=== PATIENT | female | born 1980 | race Caucasian/White ===

== ENCOUNTER 2018-03-14 03:48 | Observation (INO) | payer OTHER ==
[2018-03-14] MEDS ORDERED: BISACODYL (EC) 5 MG TAB PO (05:00)
[2018-03-14] MEDS ORDERED: ACETAMINOPHEN 325 MG TAB PO (05:00)
[2018-03-14] MEDS ORDERED: DOCUSATE SODIUM 100 MG CAP PO (05:00)
[2018-03-14] MEDS ORDERED: NACL 0.9% 3 ML SYG IV (05:00)
[2018-03-14] MEDS ORDERED: ONDANSETRON 4 MG INJ IV (05:00)
[2018-03-14] MEDS: SOD CHLORIDE 0.9% 1,000 ML IV ×3 (05:36→21:03)
[2018-03-14] MEDS: HYDROmorphONE 0.5 MG/0.5 ML SYG IV ×4 (05:37→20:58)
[2018-03-14 05:43] LABS: ADD MAN DIFF? NO
[2018-03-14 05:50] LABS: BASOPHIL # 0.1 10^3/ul (0.0-0.1); BASOPHILS % 0.6 % (0.0-2.0); EOSINOPHILS # 0.1 10^3/ul (0.0-0.5); EOSINOPHILS % 1.2 % (0.0-7.0); HEMATOCRIT 34.6 % (37.0-47.0); HEMOGLOBIN 11.1 g/dl (12.0-16.0); LYMPHOCYTES # 2.6 10^3/ul (0.8-2.9); LYMPHOCYTES % 24.7 % (15.0-51.0); MEAN CORPUSCULAR HEMOGLOBIN 30.6 pg (29.0-33.0); MEAN CORPUSCULAR HGB CONC 32.1 g/dl (32.0-37.0); MEAN CORPUSCULAR VOLUME 95.3 fl (82.0-101.0); MEAN PLATELET VOLUME 10.1 fl (7.4-10.4); MONOCYTE # 0.6 10^3/ul (0.3-0.9); MONOCYTES % 5.9 % (0.0-11.0); PLATELET COUNT 253 10^3/UL (140-415); RED BLOOD COUNT 3.63 10^6/ul (4.20-5.40); RED CELL DISTRIBUTION WIDTH 13.4 % (11.5-14.5)
[2018-03-14 05:50] LABS: WHITE BLOOD COUNT 10.4 10^3/ul (4.8-10.8)
[2018-03-14 06:18] LABS: ALANINE AMINOTRANSFERASE 37 IU/L (13-69); ALBUMIN 3.7 g/dl (3.3-4.9); ALBUMIN/GLOBULIN RATIO 1.12; ALKALINE PHOSPHATASE 56 IU/L (42-121); ANION GAP 10 (8-16); ASPARTATE AMINO TRANSFERASE 25 IU/L (15-46); BILIRUBIN,INDIRECT 0.3 mg/dl (0-1.1); BILIRUBIN,TOTAL 0.3 mg/dl (0.2-1.3); BLOOD UREA NITROGEN 9 mg/dl (7-20); CALCIUM 8.5 mg/dl (8.4-10.2); CARBON DIOXIDE 27 mmol/L (21-31); CHLORIDE 105 mmol/L (97-110); CREATININE 0.49 mg/dl (0.44-1.00); GLUCOSE 97 mg/dl (70-220); POTASSIUM 4.4 mmol/L (3.5-5.1); SODIUM 138 mmol/L (135-144)
[2018-03-14 06:18] LABS: MAGNESIUM 2.1 mg/dl (1.7-2.5)
[2018-03-14] MEDS ORDERED: LORAZEPAM 0.5 MG TAB PO (07:00)
[2018-03-14] MEDS ORDERED: LORAZEPAM 2 MG INJ IV (12:00)
[2018-03-14 12:01] LABS: IRON 73 ug/dl (35-150)
[2018-03-14 12:10] LABS: % IRON SATURATION 21 % SAT (22-52); TOTAL IRON BINDING CAPACITY 342 ug/dl (241-421)
[2018-03-14 12:17] LABS: FREE T4 (FREE THYROXINE) 0.24 ng/dl (0.79-2.35)
[2018-03-14 13:43] LABS: FERRITIN 34.9 ng/ml (6.2-137.0)
[2018-03-15] MEDS: HYDROmorphONE 0.5 MG/0.5 ML SYG IV ×3 (01:22→12:47)
[2018-03-15 05:41] LABS: ADD MAN DIFF? NO
[2018-03-15 05:44] LABS: WHITE BLOOD COUNT 8.7 10^3/ul (4.8-10.8)
[2018-03-15 05:44] LABS: BASOPHIL # 0.1 10^3/ul (0.0-0.1); EOSINOPHILS # 0.1 10^3/ul (0.0-0.5); EOSINOPHILS % 1.6 % (0.0-7.0); HEMATOCRIT 35.2 % (37.0-47.0); HEMOGLOBIN 11.4 g/dl (12.0-16.0); LYMPHOCYTES # 2.4 10^3/ul (0.8-2.9); LYMPHOCYTES % 27.1 % (15.0-51.0); MEAN CORPUSCULAR HEMOGLOBIN 30.4 pg (29.0-33.0); MEAN CORPUSCULAR HGB CONC 32.4 g/dl (32.0-37.0); MEAN CORPUSCULAR VOLUME 93.9 fl (82.0-101.0); MEAN PLATELET VOLUME 10.2 fl (7.4-10.4); MONOCYTE # 0.5 10^3/ul (0.3-0.9); NEUTROPHIL # 5.5 10^3/ul (1.6-7.5); NEUTROPHILS % 63.7 % (39.0-77.0); PLATELET COUNT 243 10^3/UL (140-415); RED BLOOD COUNT 3.75 10^6/ul (4.20-5.40); RED CELL DISTRIBUTION WIDTH 13.6 % (11.5-14.5)
[2018-03-15 06:19] LABS: ALANINE AMINOTRANSFERASE 38 IU/L (13-69); ALBUMIN 3.7 g/dl (3.3-4.9); ALBUMIN/GLOBULIN RATIO 1.27; ALKALINE PHOSPHATASE 56 IU/L (42-121); ANION GAP 12 (8-16); ASPARTATE AMINO TRANSFERASE 30 IU/L (15-46); BILIRUBIN,INDIRECT 0.2 mg/dl (0-1.1); BILIRUBIN,TOTAL 0.2 mg/dl (0.2-1.3); BLOOD UREA NITROGEN 10 mg/dl (7-20); CALCIUM 8.4 mg/dl (8.4-10.2); CARBON DIOXIDE 24 mmol/L (21-31); CHLORIDE 108 mmol/L (97-110); CREATININE 0.57 mg/dl (0.44-1.00); GLUCOSE 88 mg/dl (70-220); SODIUM 140 mmol/L (135-144); TOTAL PROTEIN 6.6 g/dl (6.1-8.1)
[2018-03-15 06:19] LABS: PHOSPHORUS 3.2 mg/dl (2.5-4.9)
[2018-03-15] MEDS ORDERED: FENTAnyl 50 MCG/ML VIAL (09:49)
[2018-03-15] MEDS ORDERED: ROPIVACAINE 0.5 % 30 ML VIAL (09:50)
[2018-03-15] MEDS: LEVOTHYROXINE 100 MCG TAB PO (10:00)
[2018-03-15] MEDS: BUPIVACAINE 0.25%/EPI (SDV) 30 ML INJ (10:20)
[2018-03-15] MEDS ORDERED: SUCCINYLCHOLINE CHLORIDE 100 MG/5 ML SYG IV (10:37)
[2018-03-15] MEDS ORDERED: CEFAZOLIN 1 GM INJ (10:37)
[2018-03-15] MEDS ORDERED: ROCURONIUM 50 MG INJ (10:37)
[2018-03-15] MEDS ORDERED: PROPOFOL 20 ML (10:37)
[2018-03-15] MEDS ORDERED: SUGAMMADEX SODIUM 200 MG/2 ML VIAL IV (10:38)
[2018-03-15] MEDS ORDERED: LIDOCAINE 100 MG SYRINGE (10:38)
[2018-03-15] MEDS ORDERED: morphine 2 MG INJ IV (11:00)
[2018-03-15] MEDS: ONDANSETRON 4 MG INJ IV (11:01)
[2018-03-15] MEDS ORDERED: HYDROmorphONE 1 MG/5 ML IV SYRINGE IV ×2 (11:25→11:30)
[2018-03-15] MEDS ORDERED: DIPHENHYDRAMINE 50 MG INJ IV (11:30)
[2018-03-15] MEDS ORDERED: ONDANSETRON 4 MG INJ IV (11:30)
[2018-03-15] MEDS ORDERED: FENTAnyl 50 MCG/ML VIAL IV ×3 (11:30)
[2018-03-15] MEDS ORDERED: METOCLOPRAMIDE 10 MG INJ IV (11:30)
[2018-03-15] MEDS ORDERED: ALBUTEROL 0.083% (NEB) 2.5 MG/3 ML AMP HHN (11:30)
[2018-03-15] MEDS ORDERED: MEPERIDINE 25 MG INJ IV (11:30)
[2018-03-15] MEDS: HYDROmorphONE 1 MG/5 ML IV SYRINGE IV ×2 (11:31→11:54)
[2018-03-15] MEDS: SOD CHLORIDE 0.9% 1,000 ML IV (14:05)
[2018-03-15] MEDS ORDERED: VITAMIN A & D 5 GM OINT PACKET TOP (15:28)
[2018-03-15] MEDS: HYDROmorphONE 1 MG/ML SYG IV ×3 (15:48→21:38)
[2018-03-16] MEDS: HYDROmorphONE 1 MG/ML SYG IV ×3 (00:52→08:52)
[2018-03-16] MEDS: SOD CHLORIDE 0.9% 1,000 ML IV ×2 (04:57→06:55)
[2018-03-16 05:17] LABS: ADD MAN DIFF? NO
[2018-03-16 05:19] LABS: WHITE BLOOD COUNT 10.9 10^3/ul (4.8-10.8)
[2018-03-16 05:19] LABS: BASOPHIL # 0.1 10^3/ul (0.0-0.1); BASOPHILS % 0.6 % (0.0-2.0); EOSINOPHILS # 0.1 10^3/ul (0.0-0.5); EOSINOPHILS % 0.8 % (0.0-7.0); HEMATOCRIT 34.5 % (37.0-47.0); HEMOGLOBIN 11.1 g/dl (12.0-16.0); LYMPHOCYTES # 2.1 10^3/ul (0.8-2.9); LYMPHOCYTES % 18.8 % (15.0-51.0); MEAN CORPUSCULAR HEMOGLOBIN 29.9 pg (29.0-33.0); MEAN CORPUSCULAR HGB CONC 32.2 g/dl (32.0-37.0); MEAN PLATELET VOLUME 10.2 fl (7.4-10.4); MONOCYTE # 0.8 10^3/ul (0.3-0.9); MONOCYTES % 6.9 % (0.0-11.0); NEUTROPHIL # 7.9 10^3/ul (1.6-7.5); NEUTROPHILS % 72.3 % (39.0-77.0); PLATELET COUNT 259 10^3/UL (140-415); RED BLOOD COUNT 3.71 10^6/ul (4.20-5.40); RED CELL DISTRIBUTION WIDTH 13.5 % (11.5-14.5)
[2018-03-16 05:33] LABS: MAGNESIUM 1.8 mg/dl (1.7-2.5)
[2018-03-16 05:39] LABS: ALBUMIN/GLOBULIN RATIO 1.11; ANION GAP 13 (8-16); BILIRUBIN,TOTAL 0.4 mg/dl (0.2-1.3)
[2018-03-16 05:40] LABS: CARBON DIOXIDE 28 mmol/L (21-31); CHLORIDE 101 mmol/L (97-110); POTASSIUM 4.3 mmol/L (3.5-5.1); SODIUM 138 mmol/L (135-144)
[2018-03-16] MEDS: LEVOTHYROXINE 100 MCG TAB PO (05:40)
[2018-03-16 05:41] LABS: ALANINE AMINOTRANSFERASE 79 IU/L (13-69); ALBUMIN 3.8 g/dl (3.3-4.9); ALKALINE PHOSPHATASE 58 IU/L (42-121); ASPARTATE AMINO TRANSFERASE 71 IU/L (15-46); BILIRUBIN,INDIRECT 0.4 mg/dl (0-1.1); BLOOD UREA NITROGEN 8 mg/dl (7-20); CALCIUM 8.8 mg/dl (8.4-10.2); CREATININE 0.63 mg/dl (0.44-1.00); GLUCOSE 102 mg/dl (70-220); TOTAL PROTEIN 7.2 g/dl (6.1-8.1)
[2018-03-16 05:55] LABS: PHOSPHORUS 3.1 mg/dl (2.5-4.9)
== END 2018-03-16 12:40 | disposition home or self-care (01) ==
LOC: MS1 03:48
DX: K80.10 Calculus of gallbladder with chronic cholecystitis without obstruction (principal); F41.9 Anxiety disorder, unspecified; E66.01 Morbid (severe) obesity due to excess calories; Z68.41 Body mass index [BMI] 40.0-44.9, adult; D64.9 Anemia, unspecified; E03.9 Hypothyroidism, unspecified; R73.03 Prediabetes
CPT/HCPCS: 47562; 76705; 78226; 80053; 82728; 83036; 83540; 83735; 84100; 84439; 84443; 85025; 88304